=== PATIENT | male | born 1980 | race Caucasian/White ===

== ENCOUNTER 2016-10-29 08:21 | Emergency (ER) | payer MEDICAID ==
[2016-07-15 09:10] VITALS: BMI 27.9
[~2016-10-29 08:21] MED LIST: ATIVAN0.5 MG PO; NORCO 7.5/325 T1 TA1 PO
== END 2016-10-29 12:10 | disposition home or self-care (01) ==
LOC: D.ER 08:21
DX: S92.812A Other fracture of left foot, initial encounter for closed fracture (principal); W20.8XXA Other cause of strike by thrown, projected or falling object, initial encounter; Y93.89 Activity, other specified; Y92.89 Other specified places as the place of occurrence of the external cause; F17.200 Nicotine dependence, unspecified, uncomplicated